=== PATIENT | male | born 1970 | race Caucasian/White ===

== ENCOUNTER 2018-04-18 07:54 | Emergency (ER) | payer SELFPAY ==
[~2018-04-18] VITALS: Ht 165.1 cm; Wt 87.1 kg
[2018-04-18 08:02] VITALS: BP 157/85
[2018-04-18] MEDS ORDERED: KETOROLAC 60 MG/2 ML VIAL IM ONE (08:45)
[2018-04-18] MEDS ORDERED: LEVOFLOXACIN 500 MG TAB PO ONE (08:45)
[2018-04-18] MEDS ORDERED: cefTRIAXone 1,000 MG in LIDOCAINE 1% ***ER ONLY *** 2.1 ML IM ONE (08:45)
[2018-04-18] MEDS ORDERED: cefTRIAXone 1,000 MG VIAL ONE (08:57)
[2018-04-18] MEDS ORDERED: LIDOCAINE MPF 1% - 5 mL VIAL 5 ML ONE (08:58)
[2018-04-18 11:28] VITALS: BP 135/81
== END 2018-04-18 09:27 | disposition home or self-care (01) ==
LOC: MED 07:54
DX: N39.0 Urinary tract infection, site not specified (principal); N20.1 Calculus of ureter; I63.9 Cerebral infarction, unspecified; R61 Generalized hyperhidrosis
CPT/HCPCS: 74176; 81002; 96372; 99284; J0696; J1885; J2001